=== PATIENT | male | born 1985 ===

== ENCOUNTER 2021-11-18 14:32 | Emergency (ER) | payer OTHER ==
[2021-11-18 14:51] VITALS: BP 119/76
[2021-11-18] MEDS ORDERED: IBUPROFEN 800 MG TAB PO ONE (16:01)
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
== END 2021-11-18 16:34 | disposition home or self-care (01) ==
LOC: ED 14:32
DX: S39.012A Strain of muscle, fascia and tendon of lower back, initial encounter (principal); Z79.899 Other long term (current) drug therapy; V87.7XXA Person injured in collision between other specified motor vehicles (traffic), initial encounter; Y93.89 Activity, other specified; Y92.488 Other paved roadways as the place of occurrence of the external cause; Y99.8 Other external cause status
CPT/HCPCS: 99282